=== PATIENT | female | born 1975 | race Two or more races ===

== ENCOUNTER 2016-06-29 22:54 | Emergency (ER) | payer OTHER ==
[~2016-06-29 22:54] MED LIST: ESCI20TA10 PO; GLIP10TA13 PO; HYDR25TA PO; Hydrocodone/Acetaminophen PO; METF-620 PO; METF500T4 PO; OMEP40CA5 PO; QUET50TA5 PO; SULF1TAB24 PO; TRAZ100T12 PO
[2016-06-29 23:17] VITALS: BP 138/61
--- NOTE | 2016-06-30 00:44 | PHYS DOC ---
Past Medical History Past Medical History: Anxiety, Other Additional Past Medical Histor: MORBID OBESITY Past Surgical History: Additional Past Surgical Histo: D&C Alcohol Use: None Drug Use: None Adult General Chief Complaint Chief Complaint: LOWER BACK PAIN OR INJURY HPI HPI 41-year-old female presenting the emergency department today with chronic back pain which has not changed. She has been taking Klonopin and her over-the- counter medications for this. She is mildly somnolent on examination. Her pain is sharp mild nonradiating and without alleviating factors. She denies any recent trauma. She denies urinary or fecal incontinence. She denies generalized weakness. She denies weakness in her lower extremity's. The patient denies taking any extra medications. Her daughter denies any concern for suicidal ideation. The patient denies suicidal ideation or homicidal ideation. Review of systems is negative for chest pain shortness of breath abdominal pain nausea vomiting fevers or chills. All other review of systems is negative unless otherwise noted in history of present illness. Review of Systems Review of Systems SEE ABOVE. Allergies Allergies Allergies Coded Allergies Type Severity Reaction Last Updated Verified I S O L A T I O N *CONTACT* Allergy Unknown 04/19/14 Yes No Known Medication Allergies Allergy Unknown 04/19/14 Yes Physical Exam Physical Exam Constitutional: Well developed, well nourished, no acute distress, non-toxic appearance. [] HENT: Normocephalic, atraumatic, bilateral external ears normal, oropharynx moist, no oral exudates, nose normal. Eyes: PERRLA, EOMI, conjunctiva normal, no discharge. [] Neck: Normal range of motion, no tenderness, supple, no stridor. Cardiovascular:Heart rate regular rhythm, no murmur Lungs & Thorax: Bilateral breath sounds clear to auscultation Abdomen: Bowel sounds normal, soft, no tenderness, no masses, no pulsatile masses. Skin: Warm, dry, no erythema, no rash. [] Back: Nontender without erythema lacerations or fluctuance. Extremities: No tenderness, no cyanosis, no clubbing, ROM intact, no edema. Neurologic: Patient opens eyes to voice, she follows commands. She is mildly somnolent on examination. normal motor function, normal sensory function, no focal deficits noted. [] Psychologic: Affect normal, judgement normal, mood normal. Current Patient Data Vital Signs Vital Signs Date Time Temp Pulse Resp B/P (MAP) Pulse Ox O2 Delivery O2 Flow Rate FiO2 06/29/16 23:17 98.1 68 16 95 Room Air 98.1 EKG EKG [] Radiology/Procedures Radiology/Procedures [] Course & Med Decision Making Course & Med Decision Making Pertinent Labs and Imaging studies reviewed. (See chart for details) [] 41-year-old female presenting with chronic back pain. Afebrile with normal blood pressure heart rate within normal limits. Breathing well on room air. Vital signs afebrile. Physical exam largely unremarkable. Patient was then discharged home to follow up with PCP. [id number] discharge instructions given. Dragon Disclaimer Dragon Disclaimer This electronic medical record was generated, in whole or in part, using a voice recognition dictation system. Departure Departure Impression: Primary Impression: Low back pain Disposition: HOME, SELF-CARE Condition: STABLE Referrals: NAVEEN SNEED MD (PCP) Patient Instructions: Back Pain, Adult Additional Instructions: Thank you for allowing us to participate in your care today. Followup with your primary care physician in 3 days if your symptoms do not improve. If you do not have a primary care provider you can ask for a list of our primary care providers. Return to the emergency department you have any new or concerning findings. This should be evaluated by the primary care physician and any necessary consulting services for continued management within a few days after discharge. Return to emergency room if you have any new or concerning symptoms including but not limited to fever, chills, nausea, vomiting, intractable pain, any new rashes, chest pain, shortness of air, uncontrolled bleeding, difficulty breathing, and/or vision loss. TANNER PEREYRA MD June 30, 2016 00:44
== END 2016-06-30 01:54 | disposition home or self-care (01) ==
LOC: ER 22:54
DX: G89.29 Other chronic pain (principal); M54.5 Low back pain; Z98.890 Other specified postprocedural states; E66.01 Morbid (severe) obesity due to excess calories; Z68.45 Body mass index [BMI] 70 or greater, adult; Z91.041 Radiographic dye allergy status
CPT/HCPCS: 99281

== ENCOUNTER 2017-11-24 13:13 | Emergency (ER) | payer OTHER ==
[~2017-11-24] VITALS: Ht 157.5 cm; Wt 90.7 kg
[~2017-11-24 13:13] MED LIST changes: -ESCI20TA10 PO; +LEXAPRO20 MG PO; -METF-620 PO; +METF10007 PO; +METF500T16 PO; -METF500T4 PO; +TRAZ-86 PO; -TRAZ100T12 PO
[2017-11-24 13:45] VITALS: BP 143/68
[2017-11-24] MEDS ORDERED: AZITHROMYCIN 250 MG TABLET. PO ONE (14:15)
[2017-11-24] MEDS ORDERED: cefTRIAXone IM 250 MG VIAL IM ONE (14:15)
[2017-11-24] MEDS ORDERED: HYDROcodone/APAP 5/325MG 1 TAB TABLET PO ONE (14:15)
[2017-11-24 14:22] LABS: BILIRUBIN,URINE NEGATIVE (NEG); CLARITY,URINE CLEAR; COLOR,URINE YELLOW; NITRITE,URINE NEGATIVE (NEG); PH,URINE 5.5; PROTEIN,URINE NEGATIVE (NEG-TRACE); UROBILINOGEN,URINE 0.2 mg/dL (0.2 mg/dL)
[2017-11-24 14:34] LABS: BACTERIA,URINE FEW /HPF (0-FEW); WBC,URINE 20-40 /HPF (0-4)
[2017-11-24 14:35] LABS: SQUAMOUS EPITHELIAL CELL,UR MOD /LPF
[2017-11-24] MEDS ORDERED: METR500T8 PO (15:14)
--- NOTE | 2017-11-24 15:14 | PHYS DOC ---
Past Medical History Past Medical History: Anxiety, Other Additional Past Medical Histor: MORBID OBESITY Past Surgical History: Additional Past Surgical Histo: D&C Alcohol Use: None Drug Use: None Adult General Chief Complaint Chief Complaint: PAIN ON URINATION [facility] HPI Patient is a 42 year old female who presents with burning with urination and low back pain since Friday. Patient denies seeing any blood in her urine. Patient denies nausea, vomiting, diarrhea, fever. Patient denies any vaginal discharge and states that she is sexually active. Patient denies any vaginal itching or possibility for sexually transmitted disease. Review of Systems Review of Systems Constitutional: Denies fever or chills [] Eyes: Denies change in visual acuity, redness, or eye pain [] HENT: Denies nasal congestion or sore throat [] Respiratory: Denies cough or shortness of breath [] Cardiovascular: No additional information not addressed in HPI [] GI: Denies abdominal pain, nausea, vomiting, bloody stools or diarrhea [] : Dysuria. Denies hematuria [] Musculoskeletal: Denies back pain or joint pain [] Integument: Denies rash or skin lesions [] Neurologic: Denies headache, focal weakness or sensory changes [] Endocrine: Denies polyuria or polydipsia [] All other systems were reviewed and found to be within normal limits, except as documented in this note. Current Medications Current Medications Current Medications Medications (Trade) Dose Ordered Sig/Mesha Start Time Stop Time Status Last Admin Dose Admin Acetaminophen/ Hydrocodone Bitart (Lortab 5/325) 1 tab 1X ONCE 11/24/17 14:15 11/24/17 14:16 DC 11/24/17 14:26 1 TAB Azithromycin (Zithromax) 1,000 mg 1X ONCE 11/24/17 14:15 11/24/17 14:16 DC 11/24/17 14:27 1,000 MG Ceftriaxone Sodium (Rocephin Im) 250 mg 1X ONCE 11/24/17 14:15 11/24/17 14:16 DC 11/24/17 14:26 250 MG Allergies Allergies Allergies Coded Allergies Type Severity Reaction Last Updated Verified I S O L A T I O N *CONTACT* Allergy Unknown 04/19/14 Yes No Known Medication Allergies Allergy Unknown 04/19/14 Yes Physical Exam Physical Exam Constitutional: Well developed, well nourished, no acute distress, non-toxic appearance. [] HENT: Normocephalic, atraumatic, bilateral external ears normal, oropharynx moist, no oral exudates, nose normal. [] Eyes: PERRLA, EOMI, conjunctiva normal, no discharge. [] Neck: Normal range of motion, no tenderness, supple, no stridor. [] Cardiovascular:Heart rate regular rhythm, no murmur [] Lungs & Thorax: Bilateral breath sounds clear to auscultation [] Abdomen: Vaginal discharge, vaginal excoriation. Adnexa motion tenderness. Bowel sounds normal, soft, no tenderness, no masses, no pulsatile masses. [] Skin: Warm, dry, no erythema, no rash. [] Back: No tenderness, no CVA tenderness. [] Extremities: No tenderness, no cyanosis, no clubbing, ROM intact, no edema. [] Neurologic: Alert and oriented X 3, normal motor function, normal sensory function, no focal deficits noted. [] Psychologic: Affect normal, judgement normal, mood normal. [] Current Patient Data Vital Signs Vital Signs Date Time Temp Pulse Resp B/P (MAP) Pulse Ox O2 Delivery O2 Flow Rate FiO2 11/24/17 13:45 98.3 78 20 143/68 (93) 99 Room Air 98.3 Lab Values Laboratory Tests Test 11/24/17 13:45 11/24/17 13:54 Urine Collection Type Unknown Urine Color Yellow Urine Clarity Clear Urine pH 5.5 Urine Specific [place] >=1.030 Urine Protein Negative mg/dL (NEG-TRACE) Urine Glucose (UA) >=1000 mg/dL (NEG) Urine Ketones (Stick) Negative mg/dL (NEG) Urine Blood Trace (NEG) Urine Nitrite Negative (NEG) Urine Bilirubin Negative (NEG) Urine Urobilinogen Dipstick 0.2 mg/dL (0.2 mg/dL) Urine Leukocyte Esterase Small (NEG) Urine RBC 1-2 /HPF (0-2) Urine WBC 20-40 /HPF (0-4) Urine Squamous Epithelial Cells Mod /LPF Urine Bacteria Few /HPF (0-FEW) Urine Mucus Slight /LPF POC Urine HCG, Qualitative Hcg negative (Negative) Microbiology 11/24/17 Wet Prep - Final, Complete EKG EKG [] Radiology/Procedures Radiology/Procedures [] Course & Med Decision Making Course & Med Decision Making Patient is a 42 year old female who presents with burning with urination and low back pain since Friday. Patient denies seeing any blood in her urine. Patient denies nausea, vomiting, diarrhea, fever. Patient denies any vaginal discharge and states that she is sexually active. Patient denies any vaginal itching or possibility for sexually transmitted disease. Upon examination abdomen is soft and nontender. Patient is afebrile. Patient is alert and oriented. The ventricular external vagina is red and inflamed and tender to touch. Upon pelvic exam there is vaginal discharge. Patient also has left and right active in all pain with motion. Patient states that she took Tylenol earlier this morning rates her pain an 8 out of 10. Patient is given [place] in the ED for pain. Patient is treated prophylactically for sexually transmitted diseases with azithromycin, Rocephin. Vaginal specimens are sent off for gonorrhea and chlamydia testing. I did send off a wet mount also. Patients wet mount shows clue cells. The patient will be treated for a prescription for metronidazole. Patient's urine is not infected. Patient should follow up with her primary care provider. Staff Physician Addendum: I was working in the ER during the course of this patient's visit. I was available for consultation as needed, but I was not directly involved in the care of this patient. [] Dragon Disclaimer Dragon Disclaimer This electronic medical record was generated, in whole or in part, using a voice recognition dictation system. 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
[2017-11-25 15:25] LABS: GC PROBE Positive (Negative)
== END 2017-11-24 15:21 | disposition home or self-care (01) ==
LOC: ER 13:13
DX: N76.0 Acute vaginitis (principal); B96.89 Other specified bacterial agents as the cause of diseases classified elsewhere; A64 Unspecified sexually transmitted disease; Z91.041 Radiographic dye allergy status
CPT/HCPCS: 81001; 81025; 87491; 87591; 96372; 99284; J0696; Q0111; Q0144

== ENCOUNTER → 2018-10-15 | Outpatient (CLI) | payer OTHER ==
[~2018-10-15] MED LIST changes: +METR-34 PO; +NAPR-695 PO
--- NOTE | 2018-10-15 19:45 | CARD ---
MR#: [id number] Date of Study: 10/15/2018 Ordering Physician: SHAHLA BENOIT, Referring Physician: SHAHLA BENOIT, Tech: Natalya Weber APPROVED REPORT EXAM: Two-dimensional and M-mode echocardiogram with Doppler and color Doppler. Other Information Quality : AverageHR: 81bpm Technically limited study due to body habitus. INDICATION Murmur RISK FACTORS Diabetes 2D DIMENSIONS RVDd2.5 (2.9-3.5cm)Left Atrium(2D)3.2 (1.6-4.0cm) IVSd0.9 (0.7-1.1cm)Aortic Root(2D)2.8 (2.0-3.7cm) LVDd5.5 (3.9-5.9cm)LVOT Diameter1.9 (1.8-2.4cm) PWd1.0 (0.7-1.1cm)LVDs3.2 (2.5-4.0cm) FS (%) 42.2 %SV104.9 ml LVEF(%)72.7 (>50%) Aortic Valve AoV Peak Kael.181.0cm/sAoV VTI39.0cm AO Peak GR.13.1mmHgLVOT Peak Kael.132.7cm/s AO Mean GR.8mmHgAVA (VMAX)2.18cm2 Mitral Valve MV E Rsyshifd005.0cm/sMV DECEL [id number] MV A Mlnbzyvd70.3cm/sE/A Ratio1.4 Pulmonary Valve PV Peak Xrflugfr75.8cm/s Tricuspid Valve TR P. Pduhqlus517im/sRAP YAOOFZQB2vxZz TR Peak Gr.12bqTsPSMV72ocOc Pulmonary Vein S1 Qldawapd34.1cm/sD2 Oyqbonni92.7cm/s PVa hjjmcmjc18zbyx LEFT VENTRICLE The Left Ventricle is borderline dilated. There is borderline concentric left ventricular hypertrophy . The left ventricular systolic function is normal and the ejection fraction is within normal range. The Ejection Fraction is >55%. There is normal LV segmental wall motion. The left ventricular diastol ic function and filling is normal for age. RIGHT VENTRICLE The right ventricle is mildly dilated. There is normal right ventricular wall thickness. The right ve ntricular systolic function is normal. ATRIA The left atrium size is normal. The right atrium size is normal. The interatrial septum is intact wit h no evidence for an atrial septal defect or patent foramen ovale as noted on 2-D or Doppler imaging. AORTIC VALVE Not well visualized. Doppler and Color Flow revealed no significant aortic regurgitation. There is no significant aortic valvular stenosis. MITRAL VALVE The mitral valve is normal in structure and function. There is no evidence of mitral valve prolapse. There is no mitral valve stenosis. Doppler and Color-flow revealed trace mitral regurgitation. TRICUSPID VALVE The tricuspid valve is normal in structure and function. Doppler and Color Flow revealed trace tricus pid regurgitation with an estimated PAP of 33 mmHg. There is no tricuspid valve stenosis. PULMONIC VALVE The pulmonic valve is not well visualized. Doppler and Color Flow revealed no pulmonic valvular regur gitation. There is no pulmonic valvular stenosis. GREAT VESSELS The aortic root is normal in size. The IVC is normal in size and collapses >50% with inspiration. PERICARDIAL EFFUSION There is no evidence of significant pericardial effusion. Critical Notification Critical Value: No <Conclusion> The left ventricular systolic function is normal and the ejection fraction is within normal range. Th e Ejection Fraction is >55%. There is normal LV segmental wall motion. Aortic valve not well visualized. Cannot rule out bicuspid valve. Signed by : Gabo Au, Electronically Approved : 10/15/2018 19:44:49
== END | disposition home or self-care (01) ==
LOC: ECHO 14:23
PROVIDERS: ATTEND Nurse Practitioner Gerontology
DX: I51.7 Cardiomegaly (principal); R01.1 Cardiac murmur, unspecified
CPT/HCPCS: 93306

== ENCOUNTER 2018-10-19 17:14 | Emergency (ER) | payer OTHER ==
[~2018-10-19] VITALS: Ht 157.5 cm; Wt 99.8 kg
[~2018-10-19 17:14] MED LIST changes: -NAPR-695 PO
[2018-10-19 18:22] VITALS: BP 132/61
[2018-10-19] MEDS ORDERED: NAPR-695 PO (19:42)
--- NOTE | 2018-10-19 19:42 | PHYS DOC ---
Past Medical History Past Medical History: Anxiety, Asthma, Diabetes-Type II, Other Additional Past Medical Histor: MORBID OBESITY Past Surgical History: Additional Past Surgical Histo: D&C Smoking: Quit Greater Than 1 Year Alcohol Use: None Drug Use: None Adult General Chief Complaint Chief Complaint: OTHER COMPLAINTS HPI HPI 43 y/o female presents with 3 week history of pain to plantar aspect of left foot. Reports today it became worse. Patient reports she is up on her feet often. Denies known trauma. Denies puncture wound. Denies swelling or redness. Denies numbness. Review of Systems Review of Systems Constitutional: Denies fever or chills Eyes: Denies redness or eye pain HENT: Denies nasal congestion or sore throat Respiratory: Denies cough or shortness of breath Cardiovascular: Denies chest pain or palpitations GI: Denies abdominal pain, nausea, or vomiting : Denies dysuria or hematuria Musculoskeletal: Denies back pain; reports pain to bottom of left foot Integument: Denies rash or skin lesions Neurologic: Denies headache, focal weakness or sensory changes Complete systems were reviewed and found to be within normal limits, except as documented in this note. Current Medications Current Medications Current Medications Medications (Trade) Dose Ordered Sig/Mesha Start Time Stop Time Status Last Admin Dose Admin Ketorolac Tromethamine (Toradol 30mg Vial) 30 mg 1X ONCE 10/19/18 19:45 10/19/18 19:46 DC Allergies Allergies Allergies Coded Allergies Type Severity Reaction Last Updated Verified I S O L A T I O N *CONTACT* Allergy Unknown 04/19/14 Yes No Known Medication Allergies Allergy Unknown 04/19/14 Yes Physical Exam Physical Exam Constitutional: Well developed, well nourished, obese, non-toxic appearance HENT: Normocephalic, atraumatic, oropharynx moist Eyes: Conjunctiva normal, no discharge Neck: Normal range of motion, no tenderness, supple Cardiovascular: left foot PT and DP +2, CR < 2 sec to left foot Skin: Warm, dry, no erythema, small blister noted to ball of left plantar foot Extremities: Point tenderness to plantar fascia of left foot, ROM intact, no edema Neurologic: Alert and oriented X 3, speech normal Psychologic: Affect normal, judgement normal Current Patient Data Vital Signs Vital Signs Date Time Temp Pulse Resp B/P (MAP) Pulse Ox O2 Delivery O2 Flow Rate FiO2 9/2/19 18:22 98.4 8 18 132/61 (84) 100 Room Air 98.4 EKG EKG [] Radiology/Procedures Radiology/Procedures Left foot XR 3 view (Preliminary interpretation by ED physician): NO acute fracture/dislocation Course & Med Decision Making Course & Med Decision Making Pertinent Imaging studies reviewed. (See chart for details) Patient presents with history of present illness and physical exam concerning for plantar fasciitis. Pain addressed. Ice pack applied. X-ray obtained without acute fracture or dislocation. Patient stable for discharge with outpatient follow-up with PCP. Discussed findings and plan with patient and family, who acknowledge understanding and agreement. Dragon Disclaimer Dragon Disclaimer This electronic medical record was generated, in whole or in part, using a voice recognition dictation system. Departure Departure Impression: Primary Impression: Plantar fasciitis of left foot Disposition: 01 HOME, SELF-CARE Condition: STABLE Referrals: NAVEEN SNEED MD (PCP) Patient Instructions: Plantar Fasciitis (Heel Spur Syndrome) with Rehab- [facility] Scripts Naproxen (NAPROXEN) 375 Mg Tablet 375 MG PO TID PRN for PAIN, #20 Prov: VERENA JAMA DO 10/19/18 VERENA JAMA DO Oct 19, 2018 19:42
[2018-10-19] MEDS ORDERED: KETOROLAC 30 MG/ML VIAL. IM ONE (19:45)
--- NOTE | 2018-10-20 03:48 | RAD ---
Left foot 3 views. HISTORY: Pain to plantar aspect of foot x3 weeks 3 views were taken of the left foot. There is mild spurring on the calcaneus. There is no fracture or other acute osseous abnormality. There is mild soft tissue swelling. IMPRESSION: 1. No acute osseous abnormality left foot. Electronically signed by: Zeke Sheikh MD (10/20/2018 3:46 AM) [facility]
== END 2018-10-19 20:21 | disposition home or self-care (01) ==
LOC: ER 17:14
DX: M72.2 Plantar fascial fibromatosis (principal); F41.9 Anxiety disorder, unspecified; J45.909 Unspecified asthma, uncomplicated; E11.9 Type 2 diabetes mellitus without complications; E66.01 Morbid (severe) obesity due to excess calories; Z98.890 Other specified postprocedural states; Z87.891 Personal history of nicotine dependence; Z91.041 Radiographic dye allergy status; Z68.41 Body mass index [BMI] 40.0-44.9, adult
CPT/HCPCS: 73630; 96372; 99284; J1885